=== PATIENT | female | born 1960 | race Caucasian/White ===

== ENCOUNTER → 2019-04-07 11:05 | Day surgery (SDC) | payer BC ==
[~2019-04-07 11:05] MED LIST: Heparin 2 UNITS/ML IVPREMIX* 2,000 ML IV ONE; Heparin(*) 1000 UNIT/ML 10 ML VIAL CATH LAB IV ONE; Iodixanol 320 (CONTRAST) 100 ML SDV ONE; Iohexol 350 (CONTRAST) 200 ML MDV IV ONE; LORazepam TAB(*) 1 MG ONE; Lidocaine 1% INJ* 10 MG/ML 30 ML SDV ONE; Midazolam* 1 MG/ML 5 ML VIAL (5 MG) ONE; ceFAZolin VIAL(*) VIAL ONE; fentaNYL* 50 MCG/ML 2 ML VIAL (100 MCG VIAL) ONE
[2019-04-07 12:02] LABS: Activated Partial Thrombo Time 31.1 seconds (26.0-38.0); INR 0.86 (0.82-1.09)
[2019-04-07 12:07] LABS: BUN/Creatinine Ratio 8.1 (8-20); Calcium 10.7 mg/dL (8.6-10.3); EGFR African American 118.8 (>60); EGFR Non-African American 98.2 (>60); Potassium 3.9 mmol/L (3.5-5.0)
--- NOTE | 2019-04-07 15:55 | PN ---
Progress Note - Progress Note Date of Service: 04/07/19 SOAP: Subjective: Mild pain in the feet, same as the night time rest pain she has been experiencing chronically. No pelvic or left groin pain. Objective: Selected Entries 04/07/19 15:30 Heart Rate 98 Respiratory 15 Rate Blood Pressure 147/86 (mmHg) Blood Pressure 94 Mean O2 Sat by Pulse 95 Oximetry Eating lunch. Conversant. No abdominopelvic tenderness to palpation. Left groin is soft, nontender Dressing is CDI 1+ pulse at left COLORS CUSTODIAN Assessment: 58 YOF status post aortography, pelvic and BLE arteriography and IVUS imaging of the aorta and left iliac arteries. Patient's left COLORS CUSTODIAN was too narrow and calcified for Mynx closure deployment, therefore bedrest 4-6 hours. Plan: 1. Bedrest with left leg straight until 1900 or 2000 hours. 2. Will schedule pelvic arteriography in the near future with the intention to stent the coarsely calcified and stenotic aortoiliac segment. 3. Routine IR follow will include call tomorrow to inquire about signs/symptoms of access site hematoma.
[2019-04-07 19:28] VITALS: BP 157/89
== END | disposition home or self-care (01) ==
LOC: CHICATH 11:05
PROVIDERS: ATTEND Radiology Diagnostic Radiology
DX: I70.223 Atherosclerosis of native arteries of extremities with rest pain, bilateral legs (principal); I70.213 Atherosclerosis of native arteries of extremities with intermittent claudication, bilateral legs; I10 Essential (primary) hypertension; F17.210 Nicotine dependence, cigarettes, uncomplicated
CPT/HCPCS: 36415; 37252; 37253; 75716; 75736; 76937; 80048; 85610; 85730; 99156; 99157; A9270-GY; C1753; C1769; C1887; C1894; J0690; J1644; J2250; J3010

== ENCOUNTER 2019-04-30 12:35 | Emergency (ER) | payer BC ==
--- OUTSIDE RECORDS SUMMARY | 2019-04-30 12:44 | XMS REPORT | Continuity of Care Document ---
:1960 External Reference #:[id number] Author Name Moira tSearns M.D. Address [address] [place] [address] Care Team Providers Name Role Phone Michael Smith MD - Family Care Team Information New Client Banking Services Clerk Medicine Problems Description No Information Available Social History Type Date Description Comments Sex Unknown Tobacco Use Start: Unknown Patient is a current 1 ppd , quit during 2 cigarette smoker, smokes pregnacies , would every day like to quit ETOH Use Currently consumes couple of beers a alcohol night Tobacco Use Start: Unknown Patient is a current smoker, smokes every day Smoking Status Reviewed: 03/03/19 Patient is a current smoker, smokes every day Exercise Does not exercise Type/Frequency Exercise has done calisthentics in Type/Frequency past Allergies, Adverse Reactions, Alerts Active Allergies Reaction Severity Comments Date Deoderant 01/10/2019 Medications Active Medications SIG Qnty Indications Ordering Provider Date Hydrocodone 1-2 by mouth 60tabs I10 Michael Flood 03/03/2019 Bitartrate/Acetaminop nightly as needed MD Sarah hen leg and foot 5-325mg Tablets pain. Lisinopril-Hydrochlor 1 po qd 30tabs Janelle Miller, 02/02/2019 othiazide Afnp-C 10-12.5mg Tablets Chantix Starting take as directed 53tabs F17.218 Janelle Miller, 2018 Month Baltazar Afnp-C 0.5mg X 11 & 1 mg X 42 Tablets Advil 2 tabs daily as Unknown 200mg Tablets needed History Medications Lisinopril-Hydrochlorothiazide 1 by mouth 30tabs Michael Flood 01/20/2019 - 20-12.5mg Tablets every day MD Sarah 02/02/2019 Immunizations Description No Information Available Vital Signs Date Vital Result Comment 04/09/2019 12:24pm BP Systolic 94 mmHg BP Diastolic 60 mmHg Heart Rate 96 /min Body Temperature 96.9 F Respiratory Rate 15 /min O2 % BldC Oximetry 96 % Ra Weight 92.00 lb 03/03/2019 3:15pm BP Systolic 104 mmHg BP Diastolic 62 mmHg Heart Rate 102 /min Body Temperature 97.5 F Respiratory Rate 16 /min O2 % BldC Oximetry 96 % Ra Height 65.5 inches 5'5.50" measured Weight 97.00 lb BMI (Body Mass Index) 15.9 kg/m2 Results Test Acquired Date Facility Test Result H/L Range Note [place]r/Protime [place]07[place] [facility] [place] 0.86 Normal 0.82-1.09 1 Laboratory test 04/07/2019 [facility] [place] Partial 31.1 seconds Normal 26.0-38.0 finding Thrombo Time PTT Basic Metabolic 04/07/2019 [facility] Sodium 126 mmol/L Low 135-145 Panel Potassium 3.9 mmol/L Normal 3.5-5.0 Chloride 89 mmol/L Low 101-111 Co2 Carbon Dioxide 28 mmol/L Normal 22-32 Anion Gap 9 mmol/L Normal 2-11 Glucose 137 mg/dL High 70-100 Blood Urea Nitrogen 5 mg/dL Low 6-24 Creatinine 0.62 mg/dL Normal 0.51-0.95 BUN/Creatinine Ratio 8.1 Normal 8-20 Calcium 10.7 mg/dL High 8.6-10.3 Egfr Non- 98.2 >60 Egfr 118.8 >60 2 Comprehensive Metabolic 01/19/2019 [facility]) Sodium 126 mEq/L Low 134-149 3 Prof Potassium 5.0 mEq/L 3.6-5.5 Chloride 95 mEq/L 94-112 Carbon Dioxide 26 mEq/L 21-32 Glucose 110 mg/dL High 70-105 BUN 4 mg/dL Low 6-26 4 Creatinine 0.4 mg/dL Low 0.6-1.4 5 BUN/Creat Ratio 10.0 CALC 8.0-36.0 Calcium 10.2 mg/dL 8.6-10.2 Total Protein 8.0 g/dL 6.4-8.3 Albumin 4.9 g/dL 3.8-5.5 Globulin 3.1 g/dL 2.0-4.8 A/G Ratio 1.6 CALC 0.6-2.3 Alk. Phosphatase 70 U/L 30-110 Alt (SGPT) 40 U/L High 7-35 Ast (Sgot) 51 U/L High 5-34 Total Bilirubin 0.4 mg/dL 0.2-1.3 GFR Non- >60 ml/min/1.73m^ >=60 GFR >60 ml/min/1.73m^ >=60 Lipid Profile 01/19/2019 [facility]) Cholesterol 233 mg/dL High 120-200 Triglycerides 83 mg/dL 30-200 HDL Cholesterol 120 mg/dL High 30-85 LDL (Calculated) 96 CALC 0-129 VLDL Cholesterol 17 mg/dL 0-50 HDL Risk Factor 1.9 CALC 0.0-4.4 CBC Electronic a 01/19/2019 [facility]) WBC 8.8 x10^3/UL 4.0- 10.0 RBC 4.87 x10^6/UL 3.93-6.00 HGB 14.4 g/dL 12.0-17.0 HCT 44 % 35-50 MCV 90.6 fL 80.0-95.0 MCH 29.6 pg 25.6-32.2 MCHC 32.7 g/dL 32.2-36.0 RDW-CV 12.8 % 11.6-14.4 PLT 303 x10^3/UL 163-400 MPV 9.4 fL 9.4-12.4 Barry# 6.26 x10^3/UL High 1.56-6.13 Lymph# 1.22 x10^3/UL 1.18-3.74 Hendricks# 1.19 x10^3/UL High 0.24-0.82 Eos # 0.0 x10^3/UL 0.0-0.5 Baso # 0.05 x10^3/UL 0.01-0.08 Barry% 71.3 % High 34.0-70.0 Lymph % 13.9 % Low 20.0-52.0 Hendricks% 13.6 % High 5.0-12.0 Eos% 0.3 % Low 0.7-7.0 Baso% 0.6 % 0.1-1.2 Laboratory test finding 01/19/2019 [facility]) TSH 0.61 mIU/L 0.50-6.00 1 Standard intensity warfarin therapeutic range: 2.0-3.0 High intensity warfarin therapeutic range: 2.5-3.5 2 Because ethnic data is not always readily available, this report includes an eGFR for both -Americans and non- Americans. The National Kidney Disease Education Program (NKDEP) does not endorse the use of the MDRD equation for patients that are not between the ages of 18 and 70, are , have extremes of body size, muscle mass, or nutritional status, or are non- or non-. According to the National Kidney Foundation, irrespective of diagnosis, the stage of the disease is based on the level of kidney function: Stage Description GFR(mL/min/1.73 m(2)) 1 Kidney damage with normal or decreased GFR 90 2 Kidney damage with mild decrease in GFR 60-89 3 Moderate decrease in GFR 30-59 4 Severe decrease in GFR 15-29 5 Kidney failure <15 (or dialysis) 3 RESULTS VERIFIED BY REPEAT ANALYSIS 4 RESULTS VERIFIED BY REPEAT ANALYSIS 5 RESULTS VERIFIED BY REPEAT ANALYSIS Procedures Date Code Description Status 01/19/2019 50978 Lori-Noninvasive physiologic studies of upper or lower Completed extremity Medical Devices Description No Information Available Encounters Type Date Location Provider Dx Diagnosis Office Visit 03/03/2019 Main Office Kevin Sandhu Essential ( primary) 3:00p PHILOSOPHY LECTURER hypertension I70.213 [place] arteries of extrm w intrmt awais, bi legs F17.218 Nicotine dependence, cigarettes, w oth disorders Office Visit 02/17/2019 10:10a Main Office Michael Flood I1Bobby Essential ( primary) MD Sarah hypertension I70.213 [place] arteries of extrm w intrmt awais, bi legs F17.218 Nicotine dependence, cigarettes, w oth disorders Office Visit 02/02/2019 9:00a Main Office Janelle Miller, I70.213 [place] Afnp-C arteries of extrm w intrmt awais, bi legs I10 Essential (primary) hypertension F17.218 Nicotine dependence, cigarettes, w oth disorders Office Visit 01/20/2019 1:20p Main Office Michael Brown Essential ( primary) MD Sarah hypertension I70.213 [place] arteries of extrm w intrmt awais, bi legs Office Visit 01/10/2019 10:00a Main Office Janelle Miller, M79.662 Pain in left Afnp-C lower leg M79.661 Pain in right lower leg I70.213 [place] arteries of extrm w intrmt awais, bi legs F17.218 Nicotine dependence, cigarettes, w oth disorders Z12.31 Encntr screen mammogram for malignant neoplasm of breast Assessments Date Code Description Provider 03/03/2019 I10 Essential (primary) hypertension EWA Sandhu 03/03/2019 I70.213 Atherosclerosis of [place] arteries of EWA Sandhu extremities with intermittent claudication, bilateral legs 03/03/2019 F17.218 Nicotine dependence, cigarettes, with EWA Sandhu other nicotine-induced disorders 02/17/2019 I10 Essential (primary) hypertension Michael Smith MD 02/17/2019 I70.213 Atherosclerosis of [place] arteries of Michael Smith MD extremities with intermittent claudication, bilateral legs 02/17/2019 F17.218 Nicotine dependence, cigarettes, with Michael Smith MD other nicotine-induced disorders 02/02/2019 I70.213 Atherosclerosis of [place] arteries of Alvarado Haque extremities with intermittent claudication, bilateral legs 02/02/2019 I10 Essential (primary) hypertension Linh Haque-Jerad 02/02/2019 F17.218 Nicotine dependence, cigarettes, with Alvarado Haque other nicotine-induced disorders 01/20/2019 I10 Essential (primary) hypertension Michael Smith MD 01/20/2019 I70.213 Atherosclerosis of [place] arteries of Michael Smith MD extremities with intermittent claudication, bilateral legs 01/19/2019 M79.662 Pain in left lower leg Michael Smith MD 01/19/2019 M79.661 Pain in right lower leg Michael Smith MD 01/19/2019 I70.213 Atherosclerosis of [place] arteries of Michael Smith MD extremities with intermittent claudication, bilateral legs 01/19/2019 M79.662 Pain in left lower leg Alvarado Haque 01/19/2019 I70.213 Atherosclerosis of [place] arteries of Alvarado Haque extremities with intermittent claudication, bilateral legs 01/19/2019 M79.661 Pain in right lower leg Alvarado Haque 01/19/2019 I10 Essential (primary) hypertension Alvarado Haque 01/10/2019 M79.662 Pain in left lower leg Alvarado Haque 01/10/2019 M79.661 Pain in right lower leg Alvarado Haque 01/10/2019 I70.213 Atherosclerosis of [place] arteries of Alvarado Haque extremities with intermittent claudication, bilateral legs 01/10/2019 F17.218 Nicotine dependence, cigarettes, with Alvarado Haque other nicotine-induced disorders 01/10/2019 Z12.31 Encounter for screening mammogram for Alvarado Haque malignant neoplasm of breast Plan of Treatment 03/03/2019 - Lili Ramos, [id number] Essential (primary) hypertensionNew Medication:Hydrocodone Bitartrate/Acetaminophen 5-325 mg - 1-2 by mouth nightly as needed leg and foot pain.I70.213 Atherosclerosis of [place] arteries of extremities with intermittent claudication, bilateral legsComments:Follow-up with Dr. Padilla as scheduled next Thursday03/08/2019. Ongoing management of your pain willdepend on his assessment and recommendations.In the short term to help with sleep judicious use of pain relief is appropriate. Narcotics can be habit forming medications so it is important to only takethe medication as prescribed by your provider. If you find that the recommended dose is not helping with pain please follow-up for further evaluation.F17.218 Nicotine dependence, cigarettes, with other nicotine-induced disordersComments:It is really important to try and stop smoking at this time. You have the prescription for Chantix to try. You can also contact the [facility] Quit line for support as smoking cessation is very difficultand having resources at hand to help in your process can improve your chances of being successful.AllComments :Medication Management Patient Understands medications he 's taking? Yes No Are there Barriers to Adherence? Yes No Has the patient been asked about herbal supplements and therapies, andOTC meds? Yes No As always, we strongly encourage a healthy diet and making physical activity a part of your every day life. If you have questions about how or where to start, please contact the office. Functional Status Description No Information Available Mental Status Description No Information Available Referrals Refer to Reason for Referral Status Appt Date Erik Padilla MD Consult and treat intermittent claudication. Scheduled 01/2019 Office note, lori report and triage faxed. [place] [facility] [place] [address] [phone]
--- OUTSIDE RECORDS SUMMARY | 2019-04-30 12:44 | XMS REPORT | Continuity of Care Document ---
:1960 External Reference #:[id number] Author Name Erik Padilla M.D. (transmitted by agent of provider Elis Solis) Address [address] [place] [address] Care Team Providers Name Role Phone Michael Smith MD - Family Care Team Information Continuing Education Dean Medicine Problems Active Problems Provider Date Intermittent claudication due to Erik Padilla M.D. Onset: 02/16/2019 atherosclerosis of [place] artery of limb Atherosclerosis of arteries of the Erik Padilla M.D. Onset: 02/16/2019 extremities Social History Type Date Description Comments Sex Unknown ETOH Use Rarely consumes alcohol Tobacco Use Start: Unknown Heavy tobacco smoker (more than 10 cigarettes/day) Smoking Status Reviewed: 02/16/19 Heavy tobacco smoker (more than 10 cigarettes/day) Exercise Type/Frequency Does not exercise Allergies, Adverse Reactions, Alerts Description No Known Drug Allergies Medications Active Medications SIG Qnty Indications Ordering Provider Date Lisinopril-Hydrochlor 1 by mouth every Unknown 02/15/2019 othiazide day 10-12.5mg Tablets Advil 3 capsules hs as Unknown 02/15/2019 200mg Capsules needed Immunizations Description No Information Available Vital Signs Date Vital Result Comment 02/16/2019 10:42am Height 65.5 inches 5'5.50" Weight 94.00 lb w/ out shoes Heart Rate 86 /min R. regular, radial BP Systolic Sitting 108 mmHg Ra, reg cuff BP Diastolic Sitting 80 mmHg Ra, reg cuff BMI (Body Mass Index) 15.4 kg/m2 Results Description No Information Available Procedures Description No Information Available Medical Devices Description No Information Available Encounters Type Date Location Provider Dx Diagnosis Office Visit 02/16/2019 [facility] Erik Padilla, I70.223 [place] 10:30a [facility] M.D. arteries of extrm w rest pain, bilateral legs I70.213 Ath[place]cl [place] arteries of mikey w intrmt awais, bi legs Assessments Date Code Description Provider 02/16/2019 I70.223 Atherosclerosis of [place] arteries of Erik Padilla M.D. extremities with rest pain, bilateral legs 02/16/2019 I70.213 Atherosclerosis of [place] arteries of Erik Padilla M.D. 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 Physical exam findings indicate there is likely occlusion in the right iliacarteries and at least high-grade stenosis in the left iliac arteries.In anticipation of calcified vasculopathy, catheter arteriography will provide the most reliable imaging of the patient's arterial system.Prior to this I will order arterial duplex sonography to confirm the patient's vessels are appropriate for percutaneous angiography.The direct cause relationship between cigarette smoking and the patient's vascular disease was emphasized and the patient was encouraged to quit smoking. Specifically I advised the patient that if she continues smoking there is nothing I or any other vascular specialist will be able to do to help her.I70.213 Atherosclerosis of [place] arteries of extremities with intermittent claudication, bilateral legs Functional Status Description No Information Available Mental Status Description No Information Available Referrals Description No Information Available
--- NOTE | 2019-04-30 13:57 | ED ---
Lower Extremity - HPI Summary HPI Summary: Patient is a 59-year-old female presents the ED with left foot numbness. Patient has hx of atherosclerotic disease and is scheduled for revascularization next thursday. Pt continues to smoke. Pt states sxs began about 2 months ago and have been progressively worsening. She states painful the past few days, and now has no feeling. Discolored this morning, but now very dark to the toes, especially the great toe. Currently on BP medications and opioids d/t the pain in the leg over the past 3-4 weeks. - History of Current Complaint Chief Complaint: EDExtremityLower Stated Complaint: GENERAL PER PT Time Seen by Provider: 04/30/19 13:22 Hx Obtained From: Patient, Family/Cognos Architect Onset/Duration: Days Severity Initially: Severe Severity Currently: Severe Pain Intensity: 0 Pain Scale Used: 0-10 Numeric Location: Is Discrete @ - left foot Associated Signs And Symptoms: Negative: Swelling, Redness - Allergies/Home Medications Allergies/Adverse Reactions: Allergies Allergy/AdvReac Type Severity Reaction Status Date / Time No Known Drug Allergies Allergy Unknown Verified 04/30/19 12:40 Reaction Details Home Medications: Home Medications Lisinopril/Hydrochlorothiazide [Lisinopril-Hctz 10-12.5 mg Tab] 1 each PO DAILY 04/06/19 [History Confirmed 04/07/19] Hydrocodone/Acetaminophen [Hydrocodone/Acetaminophen 5-325 mg] 1 tab PO DAILY PRN 04/07/19 [History Confirmed 04/07/19] Varenicline 0.5 mg Tab(Nf) [Chantix 0.5 MG TAB(NF)] 0.5 mg PO DAILY 04/07/19 [ History Confirmed 04/07/19] PMH/Surg Hx/FS Hx/Imm Hx Previously Healthy: No Respiratory History: Denies: Hx Asthma Sensory History: Denies: Hx Contacts or Glasses, Hx Hearing Aid Opthamlomology History: Denies: Hx Contacts or Glasses Infectious Disease History: No Infectious Disease History: Denies: Traveled Outside the [place] in Last 30 Days - Social History Occupation: Unemployed Lives: With Family Alcohol Use: None Hx Substance Use: No Substance Use Type: Reports: None Hx Tobacco Use: Yes Smoking Status (MU): Current Every Day Smoker Type: Cigarettes Review of Systems Negative: Fever, Chills, Fatigue, Skin Diaphoresis Negative: Palpitations, Chest Pain Negative: Shortness Of Breath, Cough Negative: Arthralgia, Myalgia Positive: Other - mottled, discolored L foott Neurological/Mental Status: Negative All Other Systems Reviewed And Are Negative: Yes Physical Exam Triage Information Reviewed: Yes Vital Signs On Initial Exam: Initial Vitals Temp Pulse Resp BP Pulse Ox 99.1 F 111 16 128/92 94 04/30/19 12:36 04/30/19 12:36 04/30/19 12:36 04/30/19 12:36 04/30/19 12:36 Vital Signs Reviewed: Yes Appearance: Positive: Ill-Appearing, Thin, Cachectic Skin: Positive: Cold, Mottled @ - foot, Pale, Other Head/Face: Positive: Normal Head/Face Inspection Eyes: Positive: EOMI, Conjunctiva Clear Respiratory/Lung Sounds: Positive: Clear to Auscultation Musculoskeletal: Positive: Other - pt collapsed in room Neurological: Positive: Other - delayed speech Procedures - Sedation Patient Received Moderate/Deep Sedation with Procedure: No Diagnostics - Vital Signs Vital Signs Temp Pulse Resp BP Pulse Ox 04/30/19 12:36 99.1 F 111 16 128/92 94 - Laboratory Result Diagrams: 04/30/19 14:03 04/30/19 14:03 Lab Statement: Any lab studies that have been ordered have been reviewed, and results considered in the medical decision making process. Lower Extremity Course/Dx - Course Course Of Treatment: Foot appears to have arterial occlusion with the left foot discolored with blotchy erythema with darkening color to the right dorsum of the foot with near black right toe. Patient has >10 sec cap refill, loss of pulses posterior tibial, pedal and unable to flex and extend the foot. Pale and mottled foot which is very cold to touch. Pt unable to ambulate, but refused help. Pt collapsed in room. States she has not health problems. Appears very cachetic, pale, thin and malnourished. Slow to respond. Smells of urine. Lives with . Until 2 days ago ambulating well, now requiring the use of a walker. Could not ambulate in the ED with 1 assist. No vascular surgery is currently on this date. I recommend emergent transfer to [facility]. Discussed with transfer center at 2:05pm. Discussed with ER physician, Dr Landa. Will be accepted to [facility] ER. Pt started on Heparin drip following lab values. Elevated CRP, liver enzymes and WBC. - Diagnoses Differential Diagnosis/HQI/PQRI: Positive: Other Provider Diagnoses: Ischemic foot, Hypokalemia, Hyponatremia - Physician Notifications Instructed by Provider To: Transfer - to [facility] - Critical Care Time Critical Care Time: 30-74 min Discharge ED - Sign-Out/Discharge Documenting (check all that apply): Patient Departure - Discharge Plan Condition: Critical Disposition: ADMITTED TO [facility] Referrals: Michael Smith MD [Primary Care Provider] - - Billing Disposition and Condition Condition: CRITICAL Disposition: Admitted to [facility] - Attestation Statements Provider Attestation: Patient was presented to [facility] by Marlene LAMB and seen by myself. Patient is a 59-year-old female with known bilateral lower extremity arterial disease. Patient is scheduled for treatment with Dr. Davey in the next couple of weeks. Patient has had left foot numbness for the past couple of days. 2 days ago, patient noticed a slight black discoloration to her toe. This morning, patient's foot was grossly more discolored and has progressively gotten worse throughout the day. Patient has an obviously necrotic foot on exam. Patient's great toe is ecchymotic with a necrotic ulceration to her palmar surface. Patient has discoloration of her distal foot. Patient has no palpable or dopplerable pulses in her left foot. The transfer process was initiated after patient was presented to [facility]. Patient was started on heparin. Patient had bloodwork performed which showed hyponatremia of 108, hypokalemia of 2.2. Patient was given 20 mEq of potassium here. Patient does have a prolonged QTC on her EKG. Patient was accepted for transfer to [facility] and transferred emergently by ambulance. Addendum entered and electronically signed by Marlene Everett PA 04/30/19 14:52 : ED Addendum Addendum: Upon transfer to [facility], pt labs were returned with critical abnormal labs CK, WBC, NA and K These will be faxed to [facility] Potassium and fluids running
[2019-04-30 14:11] LABS: ABS Lymphocytes 0.7 10^3/ul (1.0-4.8); ABS Monocytes 1.1 10^3/ul (0-0.8); ABS Neutrophils 16.1 10^3/ul (1.5-7.7); Eosinophil % 0.1 %; Hematocrit 39 % (35-47); Hemoglobin 13.5 g/dL (12.0-16.0); Lymphocyte % 3.8 %; Mean Corpuscular HGB Conc 34 g/dL (31-36); Mean Corpuscular Hemoglobin 28 pg (27-31); Mean Corpuscular Volume 83 fL (80-97); Mean Platelet Volume 6.3 fL (7.4-10.4); Platelet Count 432 10^3/uL (150-450); Red Blood Count 4.75 10^6 /uL (3.70-4.87); Red Cell Distribution Width 14 % (10-15); White Blood Count 17.9 10^3/uL (3.5-10.8)
[2019-04-30 14:16] LABS: INR 1.01 (0.82-1.09)
[2019-04-30 14:27] LABS: Albumin 4.1 g/dL (3.2-5.2); Albumin/Globulin Ratio 1.1 (1-3); C Reactive Protein 36.97 mg/L (<8.01); Calcium 9.9 mg/dL (8.6-10.3); EGFR Non-African American 101.6 (>60); Globulin 3.6 g/dL (2-4); Total Bilirubin 0.8 mg/dL (0.2-1.0); Total Protein 7.7 g/dL (6.4-8.9)
[2019-04-30] MEDS ORDERED: Heparin DRIP 25,000 UNITS(*) 25,000 UNITS/500 ML BAG IV SCH (14:30)
[2019-04-30 14:36] LABS: Potassium 2.2 mmol/L (3.5-5.0)
[2019-04-30] MEDS ORDERED: Heparin VIAL(*) 5000 UNITS/ML VIAL (FIVE THOUSAND) IV PRN (14:38)
[2019-04-30] MEDS ORDERED: KCL 20 MEQ/100 ML IVPREMIX* 20 MEQ/100 ML BAG IV ONE (14:38)
[2019-04-30] MEDS ORDERED: NS 0.9% 1000 ML** 2,000 ML IV ONE (14:50)
[2019-04-30 15:09] VITALS: BP 132/83
[2019-04-30 15:16] LABS: Activated Partial Thrombo Time 23.4 seconds (26.0-38.0)
== END 2019-04-30 15:08 | disposition short-term general hospital (02) ==
LOC: ED 12:35
DX: I99.8 Other disorder of circulatory system (principal); E87.6 Hypokalemia; E87.1 Hypo-osmolality and hyponatremia; I10 Essential (primary) hypertension; I70.90 Unspecified atherosclerosis; F17.210 Nicotine dependence, cigarettes, uncomplicated; Z79.899 Other long term (current) drug therapy
CPT/HCPCS: 36415; 80053; 82550; 83605; 85025; 85610; 85730; 86140; 93005; 96365; 96368; 96375; 99285; J1644; J3480